=== PATIENT | male | born 1940 | race Caucasian/White ===

== ENCOUNTER 2018-10-11 07:27 | Day surgery (SDC) | payer MEDICARE, BC ==
[~2018-10-11] VITALS: Ht 170.2 cm; Wt 82.5 kg
[2018-10-11 07:45] VITALS: BP 145/78
[2018-10-11] MEDS ORDERED: normal saline 1000ml 1,000 ML IV PRN (07:45)
[2018-10-11] MEDS ORDERED: midazolam 2 mg/2 ml injection ONE (08:38)
[2018-10-11] MEDS ORDERED: fentaNYL/PF 50MCG/1 ML 2ML syringe ONE (08:38)
[2018-10-11] MEDS ORDERED: heparin sodium, porcine/PF 100unit/ml 5ML syringe ONE (08:38)
[2018-10-11] MEDS ORDERED: LIDOcaine 1%/PF 5ML 10 MG/ML VIAL ONE (08:39)
[2018-10-11] MEDS ORDERED: INSU100V9 SQ (08:41)
[2018-10-11] MEDS ORDERED: lisinopril PO (08:41)
[2018-10-11] MEDS ORDERED: ATOR10TA87 PO (08:41)
[2018-10-11] MEDS ORDERED: CARV40CP PO (08:41)
[2018-10-11 09:40] VITALS: BP 118/76
[2018-10-11 09:46] VITALS: BP 95/76
[2018-10-11 10:00] VITALS: BP 114/71
[2018-10-11 10:15] VITALS: BP 111/69
[2018-10-11 10:30] VITALS: BP 103/67
== END 2018-10-11 11:00 | disposition home or self-care (01) ==
LOC: SSTAY O 07:27
PROVIDERS: ATTEND Radiology Diagnostic Radiology
DX: C25.0 Malignant neoplasm of head of pancreas (principal); Z79.899 Other long term (current) drug therapy
CPT/HCPCS: 36561; 76937; 77001; 99152; 99153; C1788; C1894; J1642; J2250; J3010; J7030; A6213

== ENCOUNTER 2018-12-12 07:47 | Day surgery (SDC) | payer MEDICARE, BC ==
[~2018-12-12] VITALS: Ht 170.2 cm; Wt 79.7 kg
[~2018-12-12 07:47] MED LIST: ATOR10TA87 PO; CARV40CP PO; INSU100V9 SQ; lisinopril PO
[2018-12-12] MEDS ORDERED: normal saline 1000ml 1,000 ML IV PRN (08:10)
[2018-12-12] MEDS ORDERED: albumin 25% 100mL bottle x 1 IV PRN (08:10)
[2018-12-12] MEDS ORDERED: AMIO200T4 PO (08:39)
[2018-12-12] MEDS ORDERED: FURO40TA4 PO (08:39)
[2018-12-12] MEDS ORDERED: APIX5TAB3 PO (08:39)
[2018-12-12] MEDS ORDERED: CEPH500C5 PO (08:39)
[2018-12-12] MEDS ORDERED: POTA-82 PO (08:39)
[2018-12-12] MEDS ORDERED: INSU100I8 SQ (08:39)
[2018-12-12 08:40] VITALS: BP 94/61
== END 2018-12-12 09:15 | disposition home or self-care (01) ==
LOC: SSTAY O 07:47
PROVIDERS: ATTEND Radiology Diagnostic Radiology
DX: R18.8 Other ascites (principal); R14.0 Abdominal distension (gaseous); I25.2 Old myocardial infarction; I25.10 Atherosclerotic heart disease of native coronary artery without angina pectoris; E78.00 Pure hypercholesterolemia, unspecified; I50.9 Heart failure, unspecified; Z79.899 Other long term (current) drug therapy; Z79.4 Long term (current) use of insulin; Z85.07 Personal history of malignant neoplasm of pancreas
CPT/HCPCS: 76705; J7030

== ENCOUNTER 2019-03-11 00:22 | Outpatient (CLI) | payer MEDICARE, BC ==
[~2019-03-11 00:22] MED LIST changes: +AMIO200T4 PO; +APIX5TAB3 PO; -ATOR10TA87 PO; +CEPH500C5 PO; +FURO40TA4 PO; +INSU100I8 SQ; +POTA-82 PO; -lisinopril PO
== END 2019-03-11 23:59 | disposition home or self-care (01) ==
LOC: DIABETIC 00:22
PROVIDERS: ATTEND Specialist
DX: E11.65 Type 2 diabetes mellitus with hyperglycemia (principal)
CPT/HCPCS: G0108

== ENCOUNTER 2019-04-16 01:44 | Outpatient (CLI) | payer MEDICARE, BC | END 2019-04-16 23:59 | disposition home or self-care (01) | LOC: DIABETIC 01:44 | PROVIDERS: ATTEND Specialist | DX: E11.65 Type 2 diabetes mellitus with hyperglycemia (principal); Z79.4 Long term (current) use of insulin | CPT/HCPCS: G0108 ==